=== PATIENT | male | born 1985 | race Caucasian/White ===

== ENCOUNTER 2017-11-10 11:13 | Emergency (ER) | payer OTHER ==
[2017-11-10 11:26] VITALS: BMI 23.0
[2017-11-10] MEDS ORDERED: SULFAMETHOXAZOLE/TRIMETHOPRIM 800MG/160MG D.S. TABLET PO ONE (12:13)
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
[2017-11-10] MEDS ORDERED: SULFAMETHOXAZOLE/TRIMETHOPRIM 800MG/160MG D.S. TABLET ONE (12:23)
--- NOTE | 2017-11-10 12:32 | PDOC ---
*Physical Exam - Vital Signs Last Vital Signs Temp Pulse Resp BP Pulse Ox 96.8 F L 85 15 110/69 99 11/10/17 11:23 11/10/17 11:23 11/10/17 11:23 11/10/17 11:23 11/10/17 11:23 - Physical Exam General Appearance: Yes: Appropriately Dressed HEENT: positive: Other (small right papule, right temporal region, ) Respiratory/Chest: positive: Lungs Clear, Normal Breath Sounds Cardiovascular: positive: Regular Rate, S1, S2 Gastrointestinal/Abdominal: positive: Normal Bowel Sounds. negative: Tender, Flat ED Treatment Course - Medications Given in the ED: ED Medications Discontinued Medications Generic Name Dose Route Start Last Admin Trade Name Freq PRN Reason Stop Dose Admin Trimethoprim/Sulfamethoxazole 1 each 11/10/17 12:13 11/10/17 12:24 Bactrim Ds - PO 11/10/17 12:14 1 each ONCE ONE Administration Medical Decision Making - Medical Decision Making 11/10/17 12:31 pt with small folliculitis. no indication for I & D at this point. treat with warm compresses and abx. pt seen and examined. in conjunction with [employer] Bea Lee. agree with plan and assessment. *DC/Admit/Observation/Transfer Diagnosis at time of Disposition: Abscess - Discharge Dispostion Disposition: HOME Condition at time of disposition: Stable - Referrals - Patient Instructions Printed Discharge Instructions: Boil Additional Instructions: Discharge instructions 1. Please follow up with your primary physician within the next few days and explain that you have been seen here in the Emergency Room to evaluate the cyst on your right temporal area. 2. If you experience any worsening of symptoms, such as it opens, drainage, fever, excessive pain, signs of infection please return to the ER 3. Complete antibiotics as prescribed 4. If the cyst opens, keep the area clean, apply bacitracin, cover with a bandage, until heals Bactrim DS BID x 7 days - Post Discharge Activity
[2017-11-10 13:19] VITALS: BP 100/65; PULSE 75; TEMP 98.2
== END 2017-11-10 13:33 | disposition home or self-care (01) ==
LOC: JER 11:13
DX: L02.01 Cutaneous abscess of face (principal); F11.20 Opioid dependence, uncomplicated; Z87.891 Personal history of nicotine dependence
CPT/HCPCS: 99281-25

== ENCOUNTER 2017-11-11 12:43 | Inpatient (IN) | payer OTHER ==
--- NOTE | 2017-11-11 11:30 | HP ---
[facility] Rehab Assess/Revision - Admission History Admitted to Rehab from: [facility] Date of Admission to Rehab: 11/11/2017 - Vital signs Vital Signs: NOTED; STABLE. - Findings Detox History & Physical reviewed: Yes Concur with findings: Yes Comments/Additional Findings: PATIENT'S MEDICAL / MEDICATION HISTORY REVIEWED PRIOR TO DISCHARGE FROM DETOX UNIT. BACTRIM DS STARTED FOR BOIL ON FACE WHILE ADMITTED FOR DETOX TO BE CONTINUED WHILE ADMITTED FOR REHAB. PATIENT ADVISED TO NOTIFY MEDICAL/NURSING STAFF IMMEDIATELY SHOULD BOIL ON FACE RUPTURE OR SHOULD HE NOTIVE ANY DISCHARGE FROM BOIL. PATIENT WAS DISCHARGED FROM DETOX UNIT IN STABLE MEDICAL CONDITION. Inpatient Rehab Admission - Initial Determination Are CD services needed?: Yes Free of communicable disease: Yes Not in need of hospitalization: Yes - Rehab Admission Criteria Poor recovery environment: Yes Comorbidities: Yes Patient is meeting Inpatient Rehab admission criteria:: Yes
[~2017-11-11 12:43] MED LIST: LOPERAMIDE HCL 2 MG CAPSULE PO PRN; MAG HYDROX/AL HYDROX/SIMETH 30 ML UNIT-DOSE CUP PO PRN; MAGNESIUM CITRATE 300 ML BOTTLE PO PRN; MAGNESIUM HYDROX 2400MG/30ML ORAL SUSPENSION 30 ML CUP PO PRN; MENTHOL/PHENOL 1 EACH UD MM PRN; NICOTINE POLACRILEX 2 MG GUM BUC PRN; P-EPHED 60MG/TRIPROLIDI 2.5MG TABLET PO PRN; guaiFENesin/D-METHORPHAN HB 10 ML UNIT-DOSE CUPS PO PRN
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
--- NOTE | 2017-11-11 16:15 | PN ---
[facility] Progress Note Note: Patient presents with nausea, anxiety, headache, sweating and diarrhea. Vital Signs Temperature 98.7 F 11/11/17 13:03 Pulse Rate 90 11/11/17 13:03 Respiratory Rate 18 11/11/17 13:03 Blood Pressure 112/67 11/11/17 13:03 O2 Sat by Pulse Oximetry (%) Obj: Skin: skin moist and intact. Pt sitting in chair, appears anxious. GI: flat, no distention noted Ext: no edema, full ROM A/P: Withdrawal symptoms Suboxone 2mg daily to start in am continue all previous orders and supportive measures continue to monitor clinically
[2017-11-11] MEDS: hydrOXYzine PAMOATE 50 MG CAPSULE (FP) PO PRN ×2 (17:38→21:55)
[2017-11-11] MEDS: SULFAMETHOXAZOLE/TRIMETHOPRIM 800MG/160MG D.S. TABLET PO SCH (21:18)
[2017-11-11] MEDS: THIAMINE HCL 100 MG TABLET (FP) PO SCH (21:18)
[2017-11-11] MEDS: IBUPROFEN 400 MG TABLET (FP) PO PRN (21:56)
[2017-11-12] MEDS: hydrOXYzine PAMOATE 50 MG CAPSULE (FP) PO PRN ×3 (03:47→17:01)
[2017-11-12] MEDS: SULFAMETHOXAZOLE/TRIMETHOPRIM 800MG/160MG D.S. TABLET PO SCH ×2 (10:03→21:23)
[2017-11-12] MEDS: PRENATAL VITAMINS W/ FOLIC ACID TABLET (FP) PO SCH (10:04)
[2017-11-12] MEDS: BUPRENORPHINE/NALOXONE 2 MG/0.5 MG FILM PACKET SL SCH (10:04)
[2017-11-12] MEDS: NICOTINE 21 MG/24 HOURS TOPICAL PATCH TD SCH (10:04)
[2017-11-12] MEDS: IBUPROFEN 400 MG TABLET (FP) PO PRN (10:05)
[2017-11-12] MEDS: MELATONIN 5 MG TABLETS PO PRN (21:23)
[2017-11-12] MEDS: THIAMINE HCL 100 MG TABLET (FP) PO SCH (21:23)
[2017-11-13] MEDS: hydrOXYzine PAMOATE 50 MG CAPSULE (FP) PO PRN ×3 (01:07→22:03)
[2017-11-13] MEDS: ACETAMINOPHEN 325 MG TABLET (FP) PO PRN (01:07)
[2017-11-13] MEDS: BUPRENORPHINE/NALOXONE 2 MG/0.5 MG FILM PACKET SL SCH (09:42)
[2017-11-13] MEDS: IBUPROFEN 400 MG TABLET (FP) PO PRN (09:42)
[2017-11-13] MEDS: SULFAMETHOXAZOLE/TRIMETHOPRIM 800MG/160MG D.S. TABLET PO SCH ×2 (09:42→22:02)
[2017-11-13] MEDS: PRENATAL VITAMINS W/ FOLIC ACID TABLET (FP) PO SCH (09:42)
[2017-11-13] MEDS: NICOTINE 21 MG/24 HOURS TOPICAL PATCH TD SCH (09:43)
[2017-11-13] MEDS: THIAMINE HCL 100 MG TABLET (FP) PO SCH (22:02)
[2017-11-13] MEDS: MELATONIN 5 MG TABLETS PO PRN (22:03)
[2017-11-14] MEDS: SULFAMETHOXAZOLE/TRIMETHOPRIM 800MG/160MG D.S. TABLET PO SCH (10:26)
[2017-11-14] MEDS: PRENATAL VITAMINS W/ FOLIC ACID TABLET (FP) PO SCH (10:26)
[2017-11-14] MEDS: NICOTINE 21 MG/24 HOURS TOPICAL PATCH TD SCH (10:26)
[2017-11-14] MEDS: hydrOXYzine PAMOATE 50 MG CAPSULE (FP) PO PRN ×2 (10:26→20:07)
[2017-11-14] MEDS: BUPRENORPHINE/NALOXONE 2 MG/0.5 MG FILM PACKET SL SCH (10:27)
[2017-11-14] MEDS: IBUPROFEN 400 MG TABLET (FP) PO PRN (10:27)
--- NOTE | 2017-11-14 13:25 | PN ---
[facility] Progress Note Note: Patient presents with boil right side of forehead. Pt went to ED at [facility] and given Bactrim. Notified by staff boil continues with redness and yellow discharge. Vital Signs Temperature 98.4 F 11/14/17 07:06 Pulse Rate 68 11/14/17 07:06 Respiratory Rate 18 11/14/17 07:06 Blood Pressure 119/73 11/14/17 07:06 O2 Sat by Pulse Oximetry (%) Obj: pt is alert and oriented x 3. Has boil to right side of forehead. +redness and yellow discharge. + Surrounding periorbital swelling of right eye. Afebrile. A/P: infected boil not responding to bactrim Will d/c bactrim and start Keflex 500mg QID x 7 days Bacitracin dressing continue to monitor clinically
[2017-11-14] MEDS: CEPHALEXIN MONOHYDRATE 500 MG CAPSULE (UD) PO SCH ×2 (17:05→23:20)
[2017-11-14] MEDS: THIAMINE HCL 100 MG TABLET (FP) PO SCH (21:15)
[2017-11-14] MEDS: MELATONIN 5 MG TABLETS PO PRN (21:15)
[2017-11-15] MEDS: CEPHALEXIN MONOHYDRATE 500 MG CAPSULE (UD) PO SCH ×4 (06:14→23:49)
[2017-11-15] MEDS: PRENATAL VITAMINS W/ FOLIC ACID TABLET (FP) PO SCH (10:22)
[2017-11-15] MEDS: NICOTINE 21 MG/24 HOURS TOPICAL PATCH TD SCH (10:23)
[2017-11-15] MEDS: BUPRENORPHINE/NALOXONE 2 MG/0.5 MG FILM PACKET SL SCH (10:23)
[2017-11-15] MEDS: BACITRACIN 0.9 GM PACKET TP SCH (10:24)
[2017-11-15] MEDS: hydrOXYzine PAMOATE 50 MG CAPSULE (FP) PO PRN (12:48)
[2017-11-15] MEDS: THIAMINE HCL 100 MG TABLET (FP) PO SCH (21:08)
[2017-11-15] MEDS: MELATONIN 5 MG TABLETS PO PRN (21:09)
[2017-11-16] MEDS: CEPHALEXIN MONOHYDRATE 500 MG CAPSULE (UD) PO SCH ×4 (08:04→23:13)
[2017-11-16] MEDS: PRENATAL VITAMINS W/ FOLIC ACID TABLET (FP) PO SCH (09:54)
[2017-11-16] MEDS: BACITRACIN 0.9 GM PACKET TP SCH (09:55)
[2017-11-16] MEDS: NICOTINE 21 MG/24 HOURS TOPICAL PATCH TD SCH (09:55)
[2017-11-16] MEDS: BUPRENORPHINE/NALOXONE 2 MG/0.5 MG FILM PACKET SL SCH (09:56)
[2017-11-16] MEDS: hydrOXYzine PAMOATE 50 MG CAPSULE (FP) PO PRN ×2 (14:15→21:36)
[2017-11-16] MEDS: THIAMINE HCL 100 MG TABLET (FP) PO SCH (21:36)
[2017-11-16] MEDS: MELATONIN 5 MG TABLETS PO PRN (21:37)
[2017-11-17] MEDS: CEPHALEXIN MONOHYDRATE 500 MG CAPSULE (UD) PO SCH ×4 (08:05→23:03)
[2017-11-17] MEDS: BUPRENORPHINE/NALOXONE 2 MG/0.5 MG FILM PACKET SL SCH (09:50)
[2017-11-17] MEDS: BACITRACIN 0.9 GM PACKET TP SCH (09:50)
[2017-11-17] MEDS: NICOTINE 21 MG/24 HOURS TOPICAL PATCH TD SCH (09:50)
[2017-11-17] MEDS: PRENATAL VITAMINS W/ FOLIC ACID TABLET (FP) PO SCH (09:55)
[2017-11-17] MEDS: hydrOXYzine PAMOATE 50 MG CAPSULE (FP) PO PRN ×2 (09:56→21:41)
[2017-11-17] MEDS: THIAMINE HCL 100 MG TABLET (FP) PO SCH (21:41)
[2017-11-18] MEDS: CEPHALEXIN MONOHYDRATE 500 MG CAPSULE (UD) PO SCH ×4 (06:45→23:20)
[2017-11-18] MEDS: PRENATAL VITAMINS W/ FOLIC ACID TABLET (FP) PO SCH (10:14)
[2017-11-18] MEDS: BACITRACIN 0.9 GM PACKET TP SCH (10:14)
[2017-11-18] MEDS: NICOTINE 21 MG/24 HOURS TOPICAL PATCH TD SCH (10:14)
[2017-11-18] MEDS: BUPRENORPHINE/NALOXONE 2 MG/0.5 MG FILM PACKET SL SCH (10:14)
[2017-11-18] MEDS: hydrOXYzine PAMOATE 50 MG CAPSULE (FP) PO PRN ×2 (10:14→21:26)
[2017-11-18] MEDS: THIAMINE HCL 100 MG TABLET (FP) PO SCH (21:26)
[2017-11-18] MEDS: MELATONIN 5 MG TABLETS PO PRN (21:27)
[2017-11-19] MEDS: CEPHALEXIN MONOHYDRATE 500 MG CAPSULE (UD) PO SCH ×4 (07:19→23:23)
[2017-11-19] MEDS: BUPRENORPHINE/NALOXONE 2 MG/0.5 MG FILM PACKET SL SCH (09:41)
[2017-11-19] MEDS: PRENATAL VITAMINS W/ FOLIC ACID TABLET (FP) PO SCH (09:41)
[2017-11-19] MEDS: NICOTINE 21 MG/24 HOURS TOPICAL PATCH TD SCH (09:41)
[2017-11-19] MEDS: BACITRACIN 0.9 GM PACKET TP SCH (09:42)
[2017-11-19] MEDS: hydrOXYzine PAMOATE 50 MG CAPSULE (FP) PO PRN ×2 (12:05→21:20)
[2017-11-19] MEDS: THIAMINE HCL 100 MG TABLET (FP) PO SCH (21:20)
[2017-11-19] MEDS: MELATONIN 5 MG TABLETS PO PRN (21:20)
[2017-11-20] MEDS: CEPHALEXIN MONOHYDRATE 500 MG CAPSULE (UD) PO SCH ×4 (07:03→23:12)
[2017-11-20] MEDS: PRENATAL VITAMINS W/ FOLIC ACID TABLET (FP) PO SCH (09:57)
[2017-11-20] MEDS: BACITRACIN 0.9 GM PACKET TP SCH (09:57)
[2017-11-20] MEDS: NICOTINE 21 MG/24 HOURS TOPICAL PATCH TD SCH (09:57)
[2017-11-20] MEDS: BUPRENORPHINE/NALOXONE 2 MG/0.5 MG FILM PACKET SL SCH (09:57)
[2017-11-20] MEDS: THIAMINE HCL 100 MG TABLET (FP) PO SCH (21:20)
[2017-11-20] MEDS: MELATONIN 5 MG TABLETS PO PRN (21:20)
[2017-11-20] MEDS: hydrOXYzine PAMOATE 50 MG CAPSULE (FP) PO PRN (21:21)
[2017-11-21] MEDS: CEPHALEXIN MONOHYDRATE 500 MG CAPSULE (UD) PO SCH (06:42)
[2017-11-21] MEDS: BUPRENORPHINE/NALOXONE 2 MG/0.5 MG FILM PACKET SL SCH (10:28)
[2017-11-21] MEDS: hydrOXYzine PAMOATE 50 MG CAPSULE (FP) PO PRN ×2 (10:28→21:31)
[2017-11-21] MEDS: PRENATAL VITAMINS W/ FOLIC ACID TABLET (FP) PO SCH (10:28)
[2017-11-21] MEDS: BACITRACIN 0.9 GM PACKET TP SCH (10:29)
[2017-11-21] MEDS: NICOTINE 21 MG/24 HOURS TOPICAL PATCH TD SCH (10:29)
[2017-11-21] MEDS: MELATONIN 5 MG TABLETS PO PRN (21:31)
[2017-11-21] MEDS: THIAMINE HCL 100 MG TABLET (FP) PO SCH (21:31)
[2017-11-22] MEDS: BUPRENORPHINE/NALOXONE 2 MG/0.5 MG FILM PACKET SL SCH (09:50)
[2017-11-22] MEDS: NICOTINE 21 MG/24 HOURS TOPICAL PATCH TD SCH (09:50)
[2017-11-22] MEDS: PRENATAL VITAMINS W/ FOLIC ACID TABLET (FP) PO SCH (09:51)
[2017-11-22] MEDS: BACITRACIN 0.9 GM PACKET TP SCH (09:51)
[2017-11-22] MEDS: IBUPROFEN 400 MG TABLET (FP) PO PRN ×2 (09:53→21:26)
[2017-11-22] MEDS: hydrOXYzine PAMOATE 50 MG CAPSULE (FP) PO PRN ×3 (12:40→21:24)
--- NOTE | 2017-11-22 15:50 | PN ---
[facility] Progress Note Note: Patient reports he does not like the way the suboxone feel and no longer wishes to continue to take the medication. Patient reports the medition makes him feel anxious and paranoid. Patient denies suicidal / homicidal ideation. Vital Signs Temperature 97.9 F 11/22/17 06:41 Pulse Rate 67 11/22/17 06:41 Respiratory Rate 16 11/22/17 06:41 Blood Pressure 104/63 11/22/17 06:41 O2 Sat by Pulse Oximetry (%) A/P: Patient AOx3, in no apparent distress, mild anxious + back pain, full ROM on all extremities Lungs clear no adventicious breath sound Normal HR and rythmn Plan: D/C suboxone Flexeril 5mg TID PRN Continue vistaril as prescribe by psych Increase fluids Continue to monitor
[2017-11-22] MEDS: CYCLOBENZAPRINE HCL 5 MG TABLET PO PRN (16:35)
[2017-11-22] MEDS: MELATONIN 5 MG TABLETS PO PRN (21:24)
[2017-11-22] MEDS: THIAMINE HCL 100 MG TABLET (FP) PO SCH (21:24)
[2017-11-23] MEDS: hydrOXYzine PAMOATE 50 MG CAPSULE (FP) PO PRN ×3 (06:39→18:31)
[2017-11-23] MEDS: NICOTINE 21 MG/24 HOURS TOPICAL PATCH TD SCH (09:55)
[2017-11-23] MEDS: PRENATAL VITAMINS W/ FOLIC ACID TABLET (FP) PO SCH (09:55)
[2017-11-23] MEDS: CYCLOBENZAPRINE HCL 5 MG TABLET PO PRN ×2 (09:57→21:19)
[2017-11-23] MEDS: IBUPROFEN 400 MG TABLET (FP) PO PRN (18:31)
[2017-11-23] MEDS: MELATONIN 5 MG TABLETS PO PRN (21:18)
[2017-11-23] MEDS: THIAMINE HCL 100 MG TABLET (FP) PO SCH (21:18)
[2017-11-24] MEDS: hydrOXYzine PAMOATE 50 MG CAPSULE (FP) PO PRN ×4 (01:32→19:41)
[2017-11-24] MEDS: PRENATAL VITAMINS W/ FOLIC ACID TABLET (FP) PO SCH (10:39)
[2017-11-24] MEDS: CYCLOBENZAPRINE HCL 5 MG TABLET PO PRN ×2 (10:40→21:49)
[2017-11-24] MEDS: NICOTINE 21 MG/24 HOURS TOPICAL PATCH TD SCH (10:41)
--- NOTE | 2017-11-24 15:06 | PN ---
Psychiatric Progress Note Vital Signs: Vital Signs Period Temp Pulse Resp BP Sys/Rosado Pulse Ox Last 24 Hr 98.0 F 102 16-16 110/64 Date of Session: 11/24/17 Chief Complaint:: discharge visit HPI: Patient addressing cocaine, cannabis, opioid dependence comorbid opioid induced anxiety disorder. ROS: WNL Current Medications: Active Medications Generic Name Dose Route Start Last Admin Trade Name Freq PRN Reason Stop Dose Admin Acetaminophen 650 mg 11/11/17 11:26 11/13/17 01:07 Tylenol - PO 650 mg Q4H PRN Administration FEVER Al Hydroxide/Mg Hydroxide 30 ml 11/11/17 11:26 Mylanta Oral Suspension - PO Q6H PRN DYSPEPSIA Cyclobenzaprine HCl 5 mg 11/22/17 15:48 11/24/17 10:40 Cyclobenzaprine Hcl PO 5 mg TID PRN Administration BACK PAIN Eucalyptus/Menthol/Phenol/Sorbitol 1 each 11/11/17 11:26 Cepastat Lozenge - MM Q4H PRN SORE THROAT Guaifenesin 10 ml 11/11/17 11:26 Robitussin Dm - PO Q6H PRN COUGH Hydroxyzine Pamoate 50 mg 11/11/17 14:58 11/24/17 10:40 Vistaril - PO 50 mg Q4H PRN Administration ANXIETY Ibuprofen 400 mg 11/11/17 11:26 11/23/17 18:31 Motrin - PO 400 mg Q6H PRN Administration Pain Level 4-6 Loperamide HCl 4 mg 11/11/17 11:26 Imodium - PO Q6H PRN DIARRHEA Magnesium Citrate 300 ml 11/11/17 11:26 Citroma - PO Q48H PRN CONSTIPATION Magnesium Hydroxide 30 ml 11/11/17 11:26 Milk Of Magnesia - PO DAILY PRN CONSTIPATION Melatonin 5 mg 11/11/17 22:00 11/23/17 21:18 Melatonin PO 5 mg HS PRN Administration INSOMNIA Nicotine 21 mg 11/12/17 10:00 11/24/17 10:41 Nicoderm Patch - TD 21 mg DAILY ANDREW Administration Nicotine Polacrilex 2 mg 11/11/17 11:26 Nicorette Gum - BUC Q2H PRN NICOTINE REPLACEMENT RX Multivit/Folic Acid/Iron 1 tab 11/12/17 10:00 11/24/17 10:39 Vitamins (Sjr) - PO 1 tab DAILY ANDREW Administration Pseudoephedrine/Triprolidine 1 combo 11/11/17 11:26 Actifed - PO TID PRN NASAL CONGESTION Thiamine HCl 100 mg 11/11/17 22:00 11/23/17 21:18 Vitamin B1 - PO 100 mg HS ANDREW Administration Current Side Effect: No Lab tests ordered: No Lab tests reviewed: Yes Provider note:: Patient will complete this treatment on 11/25/17 and meet his identified goals, will continue to address his issues at [facility] Outpatient treatment on [facility]. He gianed insights into his addiction, understands the negaive impact drug on his major life areas and verbalize resolution to stay sober and adherent to every aspects of his outpatient treatment plans, patient reports he feels a littile anxious to leave this place and states that Vistaril was effective, scripts provided, patient is stable for discharge on 11/25/17. Total face to face time:: 25 Mental Status Exam - Mental Status Exam Alert and Oriented to: Time, Place, Person Cognitive Function: Good Patient Appearance: Well Groomed Mood: Anxious, Hopeful Affect: Appropriate, Mood Congruent Patient Behavior: Appropriate, Cooperative Speech Pattern: Clear, Appropriate Voice Loudness: Normal Thought Process: Intact, Goal Oriented Thought Disorder: Not Present Hallucinations: Denies Suicidal Ideation: Denies Homicidal Ideation: Denies Insight/Judgement: Fair Sleep: Fair Appetite: Fair Muscle strength/Tone: Normal Gait/Station: Normal Psychiatric Treatment Plan - Problem List (1) Opioid-induced anxiety disorder Current Visit: Yes (2) Cocaine dependence Current Visit: No Qualifiers: Substance use status: uncomplicated Qualified Code(s): F14.20 - Cocaine dependence, uncomplicated (3) Nicotine dependence Current Visit: No Qualifiers: Nicotine product type: cigarettes Substance use status: in withdrawal Qualified Code(s): F17.213 - Nicotine dependence, cigarettes, with withdrawal
[2017-11-24] MEDS: IBUPROFEN 400 MG TABLET (FP) PO PRN (19:41)
[2017-11-24] MEDS: MELATONIN 5 MG TABLETS PO PRN (21:48)
[2017-11-24] MEDS: THIAMINE HCL 100 MG TABLET (FP) PO SCH (21:49)
[2017-11-25] MEDS: hydrOXYzine PAMOATE 50 MG CAPSULE (FP) PO PRN (06:55)
[2017-11-25] MEDS ORDERED: GABAPENTIN 100 MG CAPSULE (FP) PO ONE (09:21)
[2017-11-25] MEDS ORDERED: busPIRone HCL 5 MG TABLET PO ONE (09:22)
--- NOTE | 2017-11-25 09:29 | PN ---
Psychiatric Progress Note Vital Signs: Vital Signs Period Temp Pulse Resp BP Sys/Rosado Pulse Ox Last 24 Hr 97.6 F 76 16-18 111/66 Date of Session: 11/25/17 Chief Complaint:: "he is anxious" Current Medications: Active Medications Generic Name Dose Route Start Last Admin Trade Name Freq PRN Reason Stop Dose Admin Acetaminophen 650 mg 11/11/17 11:26 11/13/17 01:07 Tylenol - PO 650 mg Q4H PRN Administration FEVER Al Hydroxide/Mg Hydroxide 30 ml 11/11/17 11:26 Mylanta Oral Suspension - PO Q6H PRN DYSPEPSIA Cyclobenzaprine HCl 5 mg 11/22/17 15:48 11/24/17 21:49 Cyclobenzaprine Hcl PO 5 mg TID PRN Administration BACK PAIN Eucalyptus/Menthol/Phenol/Sorbitol 1 each 11/11/17 11:26 Cepastat Lozenge - MM Q4H PRN SORE THROAT Guaifenesin 10 ml 11/11/17 11:26 Robitussin Dm - PO Q6H PRN COUGH Hydroxyzine Pamoate 50 mg 11/11/17 14:58 11/25/17 06:55 Vistaril - PO 50 mg Q4H PRN Administration ANXIETY Ibuprofen 400 mg 11/11/17 11:26 11/24/17 19:41 Motrin - PO 400 mg Q6H PRN Administration Pain Level 4-6 Loperamide HCl 4 mg 11/11/17 11:26 Imodium - PO Q6H PRN DIARRHEA Magnesium Citrate 300 ml 11/11/17 11:26 Citroma - PO Q48H PRN CONSTIPATION Magnesium Hydroxide 30 ml 11/11/17 11:26 Milk Of Magnesia - PO DAILY PRN CONSTIPATION Melatonin 5 mg 11/11/17 22:00 11/24/17 21:48 Melatonin PO 5 mg HS PRN Administration INSOMNIA Nicotine 21 mg 11/12/17 10:00 11/24/17 10:41 Nicoderm Patch - TD 21 mg DAILY ANDREW Administration Nicotine Polacrilex 2 mg 11/11/17 11:26 Nicorette Gum - BUC Q2H PRN NICOTINE REPLACEMENT RX Multivit/Folic Acid/Iron 1 tab 11/12/17 10:00 11/24/17 10:39 Vitamins (Sjr) - PO 1 tab DAILY ANDREW Administration Pseudoephedrine/Triprolidine 1 combo 11/11/17 11:26 Actifed - PO TID PRN NASAL CONGESTION Thiamine HCl 100 mg 11/11/17 22:00 11/24/17 21:49 Vitamin B1 - PO 100 mg HS ANDREW Administration Medication(s) Change(s): Gabapentin 100 mg po tid and 100 mg stat, Buspar 5 mg po tid and 5 mg stat. Current Side Effect: No Lab tests ordered: No Lab tests reviewed: Yes Provider note:: Patient was scheduled for discharge today, according to the nights shift staff patient was very anxious and reported that he does not want to leave as was scheduled d/c for today. Met with the patient he is very anxious and having fine hand tremor, visibly upset and tearful, he reports he is fearful to leave today thinks he still withdrawing, he stopped suboxone 4 days ago, reports he does not want to leave now "because I might relapse". Due to the high relapse risk it was decided in teem meeting to cancel discharge process. Patient was recommended to start treatment for anxiety with Gabapentin 100 mg po tid and stat 100 mg now and Buspar 5 mg po tid, stat dose 5 mg now, will monitor response, patient was provided with supportive therapy. Total face to face time:: 35 Mental Status Exam - Mental Status Exam Alert and Oriented to: Time, Place, Person Cognitive Function: Grossly Intact Patient Appearance: Well Groomed Mood: Sad, Nervous, Withdrawn, Anxious Affect: Mood Congruent Patient Behavior: Restless (tearful), Cooperative Speech Pattern: Appropriate Voice Loudness: Normal Thought Process: Intact, Goal Oriented Thought Disorder: Not Present Hallucinations: Denies Suicidal Ideation: Denies Homicidal Ideation: Denies Insight/Judgement: Fair Sleep: Poorly Appetite: Fair Muscle strength/Tone: Normal Gait/Station: Normal Psychiatric Treatment Plan - Problem List (1) Opioid-induced anxiety disorder Current Visit: Yes (2) Cocaine dependence Current Visit: No Qualifiers: Substance use status: uncomplicated Qualified Code(s): F14.20 - Cocaine dependence, uncomplicated (3) Nicotine dependence Current Visit: No Qualifiers: Nicotine product type: cigarettes Substance use status: in withdrawal Qualified Code(s): F17.213 - Nicotine dependence, cigarettes, with withdrawal
[2017-11-25] MEDS: PRENATAL VITAMINS W/ FOLIC ACID TABLET (FP) PO SCH (09:50)
[2017-11-25] MEDS: NICOTINE 21 MG/24 HOURS TOPICAL PATCH TD SCH (09:50)
[2017-11-25] MEDS: busPIRone HCL 5 MG TABLET PO SCH ×2 (14:27→21:32)
[2017-11-25] MEDS: GABAPENTIN 100 MG CAPSULE (FP) PO SCH ×2 (14:27→21:32)
[2017-11-25] MEDS: CYCLOBENZAPRINE HCL 5 MG TABLET PO PRN (21:32)
[2017-11-25] MEDS: MELATONIN 5 MG TABLETS PO PRN (21:32)
[2017-11-25] MEDS: THIAMINE HCL 100 MG TABLET (FP) PO SCH (21:32)
[2017-11-26] MEDS: busPIRone HCL 5 MG TABLET PO SCH ×3 (06:47→21:26)
[2017-11-26] MEDS: GABAPENTIN 100 MG CAPSULE (FP) PO SCH ×3 (06:47→21:26)
[2017-11-26] MEDS: CYCLOBENZAPRINE HCL 5 MG TABLET PO PRN ×2 (09:57→21:27)
[2017-11-26] MEDS: PRENATAL VITAMINS W/ FOLIC ACID TABLET (FP) PO SCH (09:57)
[2017-11-26] MEDS: NICOTINE 21 MG/24 HOURS TOPICAL PATCH TD SCH (09:58)
[2017-11-26] MEDS: IBUPROFEN 400 MG TABLET (FP) PO PRN (14:12)
[2017-11-26] MEDS: ACETAMINOPHEN 325 MG TABLET (FP) PO PRN (17:11)
[2017-11-26] MEDS: hydrOXYzine PAMOATE 50 MG CAPSULE (FP) PO PRN (21:27)
[2017-11-26] MEDS: THIAMINE HCL 100 MG TABLET (FP) PO SCH (21:28)
[2017-11-27] MEDS: busPIRone HCL 5 MG TABLET PO SCH ×3 (06:23→21:29)
[2017-11-27] MEDS: GABAPENTIN 100 MG CAPSULE (FP) PO SCH ×3 (06:23→21:28)
[2017-11-27] MEDS: PRENATAL VITAMINS W/ FOLIC ACID TABLET (FP) PO SCH (09:53)
[2017-11-27] MEDS: hydrOXYzine PAMOATE 50 MG CAPSULE (FP) PO PRN ×2 (09:53→21:28)
[2017-11-27] MEDS: CYCLOBENZAPRINE HCL 5 MG TABLET PO PRN ×2 (09:53→21:31)
[2017-11-27] MEDS: NICOTINE 21 MG/24 HOURS TOPICAL PATCH TD SCH (09:53)
[2017-11-27] MEDS: IBUPROFEN 400 MG TABLET (FP) PO PRN (14:44)
[2017-11-27] MEDS: MELATONIN 5 MG TABLETS PO PRN (21:28)
[2017-11-27] MEDS: THIAMINE HCL 100 MG TABLET (FP) PO SCH (21:29)
[2017-11-28] MEDS: busPIRone HCL 5 MG TABLET PO SCH (06:20)
[2017-11-28] MEDS: GABAPENTIN 100 MG CAPSULE (FP) PO SCH (06:21)
[2017-11-28 06:56] VITALS: BP 131/79; PULSE 94; TEMP 98.7
[2017-11-28] MEDS: PRENATAL VITAMINS W/ FOLIC ACID TABLET (FP) PO SCH (09:46)
[2017-11-28] MEDS: NICOTINE 21 MG/24 HOURS TOPICAL PATCH TD SCH (09:46)
[2017-11-28] MEDS: hydrOXYzine PAMOATE 50 MG CAPSULE (FP) PO PRN (09:47)
--- NOTE | 2017-11-28 10:08 | PN ---
[facility] Progress Note Note: Patient was discharged today in stable condition, he reports feeling much better , medications Gabapentin and Busoar well tolerated, patient reports that treatment is effective, scripts for 30 days provided.
== END 2017-11-28 11:20 | disposition home or self-care (01) | DRG 772 ==
LOC: YASAS 12:43 → Y5N 12:44
PROVIDERS: ADMIT Psychiatry & Neurology Psychiatry; ATTEND Psychiatry & Neurology Psychiatry
PROC: HZ42ZZZ Group Counseling for Substance Abuse Treatment, Cognitive-Behavioral (ICD-10-PCS; principal; 2017-11-11)
DX: F11.23 Opioid dependence with withdrawal (principal); F14.20 Cocaine dependence, uncomplicated; F12.20 Cannabis dependence, uncomplicated; F17.210 Nicotine dependence, cigarettes, uncomplicated; L02.02 Furuncle of face; Z51.81 Encounter for therapeutic drug level monitoring

== ENCOUNTER 2024-04-07 17:31 | Inpatient (IN) | payer OTHER ==
[2024-04-07 18:38] VITALS: BMI 21.4
[2024-04-07] MEDS ORDERED: BENZONATATE 200 MG CAPSULE PO PRN (20:34)
[2024-04-07] MEDS ORDERED: NICOTINE POLACRILEX 4 MG GUM BUC PRN (20:34)
[2024-04-07] MEDS ORDERED: BENZOCAINE/MENTHOL (CHLORASEPTIC ) LOZENGE MM PRN (20:34)
[2024-04-07] MEDS ORDERED: IBUPROFEN 600 MG TABLET (FP) PO PRN (20:34)
[2024-04-07] MEDS ORDERED: NALOXONE HCL 0.4 MG/ML VIAL IM PRN (20:34)
[2024-04-07] MEDS ORDERED: MAGNESIUM HYDROX 2400MG/30ML ORAL SUSPENSION 30 ML CUP PO PRN (20:34)
[2024-04-07] MEDS ORDERED: guaiFENesin 600 MG TABLET.ER (FP) PO PRN (20:34)
[2024-04-07] MEDS ORDERED: MAG HYDROX/AL HYDROX/SIMETH 30 ML UNIT-DOSE CUP PO PRN (20:34)
[2024-04-07] MEDS ORDERED: POLYETHYLENE GLYCOL (HEALTHYLAX) 3350 17 GM PACKET PO PRN (20:34)
[2024-04-07] MEDS ORDERED: ACETAMINOPHEN 325 MG TABLET (FP) PO PRN (20:34)
[2024-04-07] MEDS ORDERED: DICYCLOMINE HCL 10 MG CAPSULE PO PRN (20:34)
[2024-04-07] MEDS ORDERED: ONDANSETRON *ODT* 4 MG TABLET SL PRN (20:34)
[2024-04-07] MEDS ORDERED: BISMUTH SUBSALICYLATE 524 MG/30 ML PO PRN (20:34)
[2024-04-07] MEDS ORDERED: NALOXONE (NARCAN) HCL 4 MG/0.1 ML SPRAY NS PRN (20:34)
[2024-04-07] MEDS ORDERED: LOPERAMIDE HCL 2 MG CAPSULE PO PRN (20:34)
[2024-04-07] MEDS: methaDONE HCL 10 MG TABLET PO ONE (21:00)
[2024-04-07] MEDS ORDERED: methaDONE HCL 10 MG TABLET (FOR DETOX USE ONLY) ONE (21:34)
[2024-04-07] MEDS ORDERED: cloNIDine HCL 0.1 MG TABLET ONE (21:34)
[2024-04-07] MEDS: cloNIDine HCL 0.1 MG TABLET PO SCH (21:34)
[2024-04-07] MEDS: MELATONIN 5 MG TABLETS PO SCH (22:00)
[2024-04-07] MEDS: THIAMINE 100 MG TABLET PO SCH (22:00)
[2024-04-07] MEDS: METHOCARBAMOL 500 MG TABLET PO PRN (22:00)
[2024-04-08 09:19] LABS: CHLORIDE 103 mmol/L (98-107); POTASSIUM 4.1 mmol/L (3.5-5.1); SODIUM 139 mmol/L (136-145)
[2024-04-08 09:21] LABS: CALCIUM 8.9 mg/dL (8.5-10.1)
[2024-04-08 09:22] LABS: ALBUMIN 3.6 g/dl (3.4-5.0); ANION GAP 5 mmol/L (4-13); BLOOD UREA NITROGEN 8.8 mg/dL (7-18); CO2 31 mmol/L (21-32); GLUCOSE,RANDOM 90 mg/dL (74-106); HEMATOCRIT 37.5 % (35.4-49); HEMOGLOBIN 12.6 GM/dL (11.7-16.9); MCH 30.1 pg (25.7-33.7); MCHC 33.6 g/dl (32.0-35.9); MEAN CELL VOLUME 89.8 fl (80-96); PLATELET COUNT 180 10^3/uL (134-434); RBC 4.18 M/mm3 (4.00-5.60); RDW 13.1 % (11.9-15.9); WHITE BLOOD COUNT 8.8 K/mm3 (4.0-10.0)
[2024-04-08 09:25] LABS: CREATININE 0.6 mg/dL (0.55-1.3); SGOT/AST 12 U/L (15-37); SGPT/ALT 12 U/L (13-61)
[2024-04-08 09:26] LABS: BILIRUBIN,TOTAL 0.8 mg/dL (0.2-1); TOT PROT 6.4 g/dl (6.4-8.2)
[2024-04-08 09:29] LABS: ALK PHOS 67 U/L (45-117)
[2024-04-08] MEDS: NICOTINE 21 MG/24 HOURS TOPICAL PATCH TD SCH (09:39)
[2024-04-08] MEDS: PRENATAL VITAMINS W/ FOLIC ACID TABLET (FP) PO SCH (09:39)
[2024-04-08] MEDS: methaDONE HCL 10 MG TABLET PO ONE (09:40)
[2024-04-08] MEDS: hydrOXYzine PAMOATE 25 MG CAPSULE (FP) PO PRN (17:28)
[2024-04-09] MEDS: methaDONE HCL 10 MG TABLET PO ONE (09:37)
[2024-04-09] MEDS: cloNIDine HCL 0.1 MG TABLET PO PRN (21:20)
[2024-04-10] MEDS: methaDONE HCL 40 MG DISPERSABLE TABLET PO ONE (09:37)
[2024-04-11] MEDS: methaDONE HCL 40 MG DISPERSABLE TABLET PO SCH (05:42)
[2024-04-11] MEDS: methaDONE HCL 10 MG TABLET (FOR DETOX USE ONLY) PO ONE (08:54)
[2024-04-11] MEDS: BUPRENORPHINE/NALOXONE 0.5 MG/0.125 MG FILM SL ONE ×2 (08:55→22:29)
[2024-04-11] MEDS: cloNIDine HCL 0.1 MG TABLET PO SCH (09:24)
[2024-04-11] MEDS ORDERED: methaDONE 40 MG, methaDONE 10 MG PO ONE (10:00)
[2024-04-12] MEDS ORDERED: methaDONE 40 MG, methaDONE 20 MG PO ONE (10:00)
[2024-04-12] MEDS: BUPRENORPHINE/NALOXONE 0.5 MG/0.125 MG FILM SL SCH (10:35)
[2024-04-13] MEDS: BUPRENORPHINE/NALOXONE 2 MG/0.5 MG FILM PACKET SL SCH (10:38)
[2024-04-13] MEDS: methaDONE HCL 10 MG TABLET (FOR DETOX USE ONLY) PO ONE (10:39)
[2024-04-14] MEDS: BUPRENORPHINE/NALOXONE 4 MG/1 MG FILM PACKET SL SCH (10:22)
[2024-04-14] MEDS: IBUPROFEN 400 MG TABLET (FP) PO PRN (22:18)
[2024-04-15] MEDS: methaDONE HCL 10 MG TABLET (FOR DETOX USE ONLY) PO ONE (10:06)
[2024-04-15] MEDS: BUPRENORPHINE/NALOXONE 8 MG/2 MG FILM PACKET SL SCH (10:06)
[2024-04-16] MEDS: BUPRENORPHINE/NALOXONE 8 MG/2 MG FILM PACKET SL SCH (10:40)
[2024-04-16 18:11] VITALS: BP 113/73; PULSE 88; RESP 16; TEMP 97.9
== END 2024-04-16 18:18 | disposition other institution (70) | DRG 773 ==
LOC: YASAS 17:31 → Y6N 21:14
PROVIDERS: ADMIT Allergy & Immunology; ATTEND Family Medicine Addiction Medicine
PROC: HZ2ZZZZ Detoxification Services for Substance Abuse Treatment (ICD-10-PCS; principal; 2024-04-07)
DX: F11.23 Opioid dependence with withdrawal (principal); F14.20 Cocaine dependence, uncomplicated; F12.20 Cannabis dependence, uncomplicated; F17.210 Nicotine dependence, cigarettes, uncomplicated; F19.24 Other psychoactive substance dependence with psychoactive substance-induced mood disorder; F43.21 Adjustment disorder with depressed mood
CPT/HCPCS: 36415; 80053; 80305; 80307; 85027; 86780; 87811; 93005; 93010

== ENCOUNTER 2024-04-16 18:25 | Inpatient (IN) | payer OTHER ==
[2024-04-16] MEDS ORDERED: NALOXONE (NARCAN) HCL 4 MG/0.1 ML SPRAY NS PRN (18:51)
[2024-04-16] MEDS ORDERED: IBUPROFEN 600 MG TABLET (FP) PO PRN (18:51)
[2024-04-16] MEDS ORDERED: MAG HYDROX/AL HYDROX/SIMETH 30 ML UNIT-DOSE CUP PO PRN (18:51)
[2024-04-16] MEDS ORDERED: MAGNESIUM HYDROX 2400MG/30ML ORAL SUSPENSION 30 ML CUP PO PRN (18:51)
[2024-04-16] MEDS ORDERED: guaiFENesin 600 MG TABLET.ER (FP) PO PRN (18:51)
[2024-04-16] MEDS ORDERED: BENZONATATE 200 MG CAPSULE PO PRN (18:51)
[2024-04-16] MEDS ORDERED: ACETAMINOPHEN 325 MG TABLET (FP) PO PRN (18:51)
[2024-04-16] MEDS ORDERED: BENZOCAINE/MENTHOL (CHLORASEPTIC ) LOZENGE MM PRN (18:51)
[2024-04-16] MEDS ORDERED: NALOXONE HCL 0.4 MG/ML VIAL IVPUSH PRN (18:51)
[2024-04-16] MEDS ORDERED: IBUPROFEN 400 MG TABLET (FP) PO PRN (18:51)
[2024-04-16] MEDS ORDERED: LOPERAMIDE HCL 2 MG CAPSULE PO PRN (18:51)
[2024-04-16] MEDS: THIAMINE 100 MG TABLET PO SCH (21:19)
[2024-04-16] MEDS: MELATONIN 5 MG TABLETS PO SCH (21:20)
[2024-04-16] MEDS: METHOCARBAMOL 500 MG TABLET PO PRN (21:20)
[2024-04-17] MEDS: PRENATAL VITAMINS W/ FOLIC ACID TABLET (FP) PO SCH (09:40)
[2024-04-17] MEDS: hydrOXYzine PAMOATE 25 MG CAPSULE (FP) PO PRN (09:40)
[2024-04-17] MEDS: BUPRENORPHINE/NALOXONE 8 MG/2 MG FILM PACKET SL SCH (09:41)
[2024-04-18] MEDS: SUVOREXANT 10 MG TABLET PO SCH (21:09)
[2024-04-19] MEDS: NICOTINE 14 MG/24 HOURS TOPICAL PATCH TD SCH (16:09)
[2024-04-20] MEDS: MAGNESIUM HYDROX 2400MG/30ML ORAL SUSPENSION 30 ML CUP PO PRN (22:56)
[2024-04-21] MEDS: POLYETHYLENE GLYCOL (HEALTHYLAX) 3350 17 GM PACKET PO PRN (21:35)
[2024-04-25] MEDS: BISACODYL 5 MG TABLET.DR (FP) PO PRN (10:16)
[2024-04-25] MEDS: METHOCARBAMOL 500 MG TABLET PO PRN (20:12)
[2024-04-28 07:07] VITALS: RESP 18
[2024-04-30 07:10] VITALS: BP 110/71; PULSE 73; TEMP 97.1
== END 2024-04-30 10:25 | disposition home or self-care (01) | DRG 772 ==
LOC: YASAS 18:25 → Y5N 18:34
PROVIDERS: ADMIT Allergy & Immunology; ATTEND Psychiatry & Neurology Pain Medicine
PROC: HZ42ZZZ Group Counseling for Substance Abuse Treatment, Cognitive-Behavioral (ICD-10-PCS; principal; 2024-04-16)
DX: F11.20 Opioid dependence, uncomplicated (principal); F14.20 Cocaine dependence, uncomplicated; F17.210 Nicotine dependence, cigarettes, uncomplicated; F19.280 Other psychoactive substance dependence with psychoactive substance-induced anxiety disorder; F19.24 Other psychoactive substance dependence with psychoactive substance-induced mood disorder; F43.21 Adjustment disorder with depressed mood; G47.00 Insomnia, unspecified; K59.00 Constipation, unspecified

== ENCOUNTER 2025-01-21 11:32 | Inpatient (IN) | payer OTHER ==
[2025-01-21] MEDS ORDERED: MAG HYDROX/AL HYDROX/SIMETH 30 ML UNIT-DOSE CUP PO PRN (16:12)
[2025-01-21] MEDS ORDERED: BENZONATATE 200 MG CAPSULE PO PRN (16:12)
[2025-01-21] MEDS ORDERED: LOPERAMIDE HCL 2 MG CAPSULE PO PRN (16:12)
[2025-01-21] MEDS ORDERED: POLYETHYLENE GLYCOL (HEALTHYLAX) 3350 17 GM PACKET PO PRN (16:12)
[2025-01-21] MEDS ORDERED: ACETAMINOPHEN 325 MG TABLET (FP) PO PRN (16:12)
[2025-01-21] MEDS ORDERED: IBUPROFEN 400 MG TABLET (FP) PO PRN (16:12)
[2025-01-21] MEDS ORDERED: BENZOCAINE/MENTHOL (CHLORASEPTIC ) LOZENGE MM PRN (16:12)
[2025-01-21] MEDS ORDERED: NICOTINE POLACRILEX 2 MG GUM BUC PRN (16:12)
[2025-01-21] MEDS ORDERED: guaiFENesin 600 MG TABLET.ER (FP) PO PRN (16:12)
[2025-01-21] MEDS: METHOCARBAMOL 500 MG TABLET PO PRN (18:00)
[2025-01-21] MEDS: hydrOXYzine PAMOATE 25 MG CAPSULE (FP) PO PRN (18:00)
[2025-01-21] MEDS: SUVOREXANT 15 MG TABLET PO PRN (21:59)
[2025-01-21] MEDS ORDERED: SUVOREXANT 15 MG TABLET PO SCH (22:00)
[2025-01-21] MEDS: MELATONIN 5 MG TABLETS PO SCH (22:00)
[2025-01-21] MEDS ORDERED: MELATONIN 5 MG TABLETS PO SCH (22:00)
[2025-01-21] MEDS: THIAMINE 100 MG TABLET PO SCH (22:00)
[2025-01-22] MEDS: PRENATAL VITAMINS W/ FOLIC ACID TABLET (FP) PO SCH (06:37)
[2025-01-22] MEDS: NICOTINE 14 MG/24 HOURS TOPICAL PATCH TD SCH (06:39)
[2025-01-22 16:52] LABS: HIV INTERPRETATION NEGATIVE (NEGATIVE)
[2025-01-22 16:53] LABS: HCV DIAGNOSTIC IN-HOUSE W/RFLX NON-REACTIVE (NONREACTIVE)
[2025-01-25] MEDS: MAGNESIUM HYDROX 2400MG/30ML ORAL SUSPENSION 30 ML CUP PO PRN (06:35)
[2025-01-28] MEDS: NICOTINE 14 MG/24 HOURS TOPICAL PATCH TD SCH (10:15)
[2025-01-28] MEDS: METHOCARBAMOL 500 MG TABLET PO SCH (21:43)
[2025-01-31 17:31] LABS: URINE APPEARANCE CLEAR; URINE BILIRUBIN NEGATIVE (NEGATIVE); URINE COLOR YELLOW; URINE GLUCOSE (UA) NEGATIVE (NEGATIVE); URINE KETONE NEGATIVE (NEGATIVE); URINE LEUK ESTERASE NEGATIVE (NEGATIVE); URINE NITRITE NEGATIVE (NEGATIVE); URINE PROTEIN NEGATIVE (NEGATIVE); URINE UROBILINOGEN 0.2 mg/dL (0.2-1.0)
[2025-02-07] MEDS: IBUPROFEN 600 MG TABLET (FP) PO PRN (00:41)
[2025-02-07] MEDS: LIDOCAINE 5% TOPICAL PATCH TP SCH (12:52)
[2025-02-07] MEDS: LIDOCAINE PATCH REMOVAL MC SCH (21:25)
[2025-02-11 06:37] VITALS: RESP 20
[2025-02-11] MEDS ORDERED: LIDOCAINE 5% TOPICAL PATCH TP PRN (08:17)
[2025-02-12 06:28] VITALS: BP 107/68; PULSE 86; TEMP 97.8
== END 2025-02-12 09:50 | disposition home or self-care (01) | DRG 772 ==
LOC: YASAS 11:32 → Y3NR 11:33 → Y5N 01-23 11:25 → Y3E 02-08 16:13
PROVIDERS: ADMIT Psychiatry & Neurology Pain Medicine; ATTEND Family Medicine Addiction Medicine
PROC: HZ42ZZZ Group Counseling for Substance Abuse Treatment, Cognitive-Behavioral (ICD-10-PCS; principal; 2025-01-21)
DX: F11.20 Opioid dependence, uncomplicated (principal); F14.20 Cocaine dependence, uncomplicated; F12.20 Cannabis dependence, uncomplicated; G89.29 Other chronic pain
CPT/HCPCS: 36415; 81003; 86803; 87389